=== PATIENT | female | born 1950 | race Caucasian/White ===

== ENCOUNTER 2019-11-08 11:50 | Emergency (ER) | payer OTHER ==
[~2019-11-08] VITALS: Ht 165.1 cm; Wt 63.8 kg
[2019-11-08 11:55] VITALS: BP 165/80
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
[2019-11-08] MEDS ORDERED: METH-38 PO (13:36)
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
== END 2019-11-08 13:44 | disposition home or self-care (01) ==
LOC: ER 11:50
DX: S16.1XXA Strain of muscle, fascia and tendon at neck level, initial encounter (principal); R51 Headache; I11.9 Hypertensive heart disease without heart failure; V43.63XA Car passenger injured in collision with pick-up truck in traffic accident, initial encounter; Y93.89 Activity, other specified; Y92.89 Other specified places as the place of occurrence of the external cause; Y99.8 Other external cause status
CPT/HCPCS: 70450; 99284-25